=== PATIENT | male | born 2000 | race Caucasian/White ===

== ENCOUNTER 2023-07-29 03:09 | Emergency (ER) | payer OTHER ==
[~2023-07-29] VITALS: Ht 182.9 cm; Wt 113.4 kg
[~2023-07-29 03:09] MED LIST: ALBU-118 IH
[2023-07-29 03:13] VITALS: BP 135/100; PULSE 99; RESP 18; TEMP 97.9
[2023-07-29 03:38] VITALS: BP 130/90; PULSE 89; RESP 18; TEMP 98; O2SAT 99
== END 2023-07-29 03:38 ==
LOC: MED 03:09
DX: Z02.89 Encounter for other administrative examinations (principal); J45.909 Unspecified asthma, uncomplicated; V49.88XA Car occupant (driver) (passenger) injured in other specified transport accidents, initial encounter; Y93.89 Activity, other specified; Y92.89 Other specified places as the place of occurrence of the external cause; Y99.8 Other external cause status
CPT/HCPCS: 99283